=== PATIENT | female | born 1935 | race Hispanic/Latino ===

== ENCOUNTER → 2018-03-31 | Outpatient (CLI) | payer OTHER ==
[~2018-03-31] MED LIST: AEC81 PO; LEVO88TA7 PO; METF500T6 PO; METOPROLOL PO; ROSU40 PO; SUCR1TAB2 PO
== END | disposition home or self-care (01) ==
LOC: SHCH 09:26
PROVIDERS: ATTEND Internal Medicine Cardiovascular Disease
DX: I35.0 Nonrheumatic aortic (valve) stenosis (principal); I10 Essential (primary) hypertension; I35.1 Nonrheumatic aortic (valve) insufficiency; R09.89 Other specified symptoms and signs involving the circulatory and respiratory systems
CPT/HCPCS: 93306; 93880

== ENCOUNTER → 2019-11-06 | Outpatient (CLI) | payer OTHER ==
[~2019-11-06] MED LIST changes: +METF-444 PO; -METF500T6 PO
--- NOTE | 2019-11-06 11:00 | NUR ---
MBSS COMPLETED. -S/S OF ASPIRATION. RECOMMEND REGULAR TEXTURE, THIN LIQUIDS; PILLS WHOLE WITH LIQUIDS. RECOMMENDATIONS: 1. GI CONSULT RECOMMENDED Addendum: 11/06/19 at 1452 by BARBARA EDWARDS, SPT ST Amended: Links added.
== END | disposition home or self-care (01) ==
LOC: RAH 11:02
PROVIDERS: ATTEND Otolaryngology Plastic Surgery within the Head & Neck
DX: R49.0 Dysphonia (principal); R13.10 Dysphagia, unspecified
CPT/HCPCS: 74230; 92611

== ENCOUNTER → 2019-11-20 | Outpatient (CLI) | payer OTHER | END | disposition home or self-care (01) | LOC: SHCH 08:26 | PROVIDERS: ATTEND Internal Medicine Cardiovascular Disease | DX: I35.0 Nonrheumatic aortic (valve) stenosis (principal) | CPT/HCPCS: 93306; 93356 ==

== ENCOUNTER 2020-03-18 07:00 | Day surgery (SDC) | payer OTHER ==
[~2020-03-18] VITALS: Ht 147.3 cm; Wt 53.2 kg
[~2020-03-18 07:00] MED LIST changes: +ALEN70TA10 PO; +LEVO100 PO; -LEVO88TA7 PO; +LOSA50TA64 PO; -METOPROLOL PO; +PANT40TA25 PO; -ROSU40 PO; +SERT50TA12 PO; +SOLI10TA7 PO; -SUCR1TAB2 PO; +VITAD50000 PO
[2020-03-18 07:30] VITALS: BP 87/63
[2020-03-18 07:36] LABS: BASOPHILS % (AUTO) 0.5 % (0.0-5.0); EOSINOPHILS % (AUTO) 2.4 % (0.0-8.0); HEMATOCRIT 40.6 % (36-48); LYMPHOCYTES % (AUTO) 36.5 % (21.0-51.0); MEAN CORPUSCULAR HEMOGLOBIN 28.7 pg (27.0-33.0); MEAN CORPUSCULAR HGB CONC 31.3 g/dL (32.0-36.0); MEAN CORPUSCULAR VOLUME 91.9 fL (79-99); MONOCYTES % (AUTO) 8.4 % (3.0-13.0); NEUTROPHILS % (AUTO) 51.9 % (40.0-77.0); PLATELET COUNT (AUTO) 216 K/uL (130-400); RED BLOOD CELL COUNT(AUTO) 4.42 MIL/uL (4.00-5.50); RED CELL DISTRIBUTION WIDTH 14.3 % (11.0-15.5); WHITE BLOOD COUNT (AUTO) 7.5 K/uL (4.8-10.8)
[2020-03-18] MEDS ORDERED: SODIUM CHLORIDE 0.9% 1000ML 1,000 ML IV ONE (07:44)
[2020-03-18 07:50] LABS: POTASSIUM 4.5 mmol/L (3.5-5.1)
[2020-03-18 08:03] LABS: APPEARANCE,URINE CLEAR (CLEAR); BILIRUBIN,URINE NEGATIVE (NEGATIVE); COLOR,URINE YELLOW (YELLOW); GLUCOSE, URINE (UA) NEGATIVE (NEGATIVE); KETONES,URINE NEGATIVE (NEGATIVE); LEUKOCYTE ESTERASE ,URINE SMALL (NEGATIVE); NITRATE,URINE NEGATIVE (NEGATIVE); OCCULT BLOOD,URINE NEGATIVE (NEGATIVE); PH,URINE 5.5 (5.0-8.0); PROTEIN,URINE NEGATIVE (NEGATIVE); UROBILINOGEN,URINE 0.2 mg/dL (0.2-1.0)
[2020-03-18 08:12] LABS: BACTERIA,URINE Few /HPF (None Seen); MUCUS,URINE Few LPF (None Seen); RBC,URINE 0-1 /HPF (0-1)
[2020-03-18 08:16] LABS: INR 0.97 (0.85-1.15); PARTIAL THROMBOPLASTIN TIME 24.9 SEC (26.3-35.5); PROTHROMBIN TIME 10.5 SEC (9.6-11.6)
[2020-03-18 08:27] VITALS: BP 140/72
--- NOTE | 2020-03-18 08:30 | NUR ---
PROCEDURE CANCELLED DUE TO PT TAKING METFORMIN THIS MORNING. OFFICE WILL CALL PT WITH NEW APPOINTMENT.
== END 2020-03-18 10:00 | disposition home or self-care (01) ==
LOC: DAH 07:00 → EDSTATUS 08:30 → DAH 10:00
PROVIDERS: ATTEND Internal Medicine Cardiovascular Disease
DX: I49.1 Atrial premature depolarization (principal); Z53.8 Procedure and treatment not carried out for other reasons; Z79.82 Long term (current) use of aspirin; Z79.899 Other long term (current) drug therapy
CPT/HCPCS: 36415; 71045; 80048; 81001; 85025; 85610; 85730; 93005; A4215; A4216; A4221; A4222; A4223 ×3; A4606; A4663; J7030

== ENCOUNTER 2020-07-03 06:56 | Day surgery (SDC) | payer OTHER ==
[2020-07-02 13:41] LABS: BASOPHILS % (AUTO) 0.3 % (0.0-5.0); EOSINOPHILS % (AUTO) 1.6 % (0.0-8.0); HEMATOCRIT 42.6 % (36-48); LYMPHOCYTES % (AUTO) 21.2 % (21.0-51.0); MEAN CORPUSCULAR HEMOGLOBIN 29.1 pg (27.0-33.0); MEAN CORPUSCULAR HGB CONC 31.5 g/dL (32.0-36.0); MEAN CORPUSCULAR VOLUME 92.4 fL (79-99); MONOCYTES % (AUTO) 9.2 % (3.0-13.0); NEUTROPHILS % (AUTO) 67.2 % (40.0-77.0); PLATELET COUNT (AUTO) 186 K/uL (130-400); RED BLOOD CELL COUNT(AUTO) 4.61 MIL/uL (4.00-5.50); WHITE BLOOD COUNT (AUTO) 6.3 K/uL (4.8-10.8)
[2020-07-02 13:52] LABS: CREATININE 0.9 mg/dL (0.5-1.5); POTASSIUM 4.7 mmol/L (3.5-5.1)
[2020-07-02 13:56] LABS: APPEARANCE,URINE Cloudy (CLEAR); BILIRUBIN,URINE Negative (NEGATIVE); COLOR,URINE Yellow (YELLOW); GLUCOSE, URINE (UA) Negative (NEGATIVE); KETONES,URINE Negative (NEGATIVE); LEUKOCYTE ESTERASE ,URINE Small (NEGATIVE); NITRATE,URINE Negative (NEGATIVE); OCCULT BLOOD,URINE Negative (NEGATIVE); PH,URINE 5.5 (5.0-8.0); PROTEIN,URINE Negative (NEGATIVE)
[2020-07-02 14:03] LABS: INR 0.99 (0.85-1.15); PARTIAL THROMBOPLASTIN TIME 25.2 SEC (26.3-35.5); PROTHROMBIN TIME 10.7 SEC (9.6-11.6)
[2020-07-02 14:31] LABS: BACTERIA,URINE Rare /HPF (None Seen); MUCUS,URINE Rare LPF (None Seen); RBC,URINE 0-1 /HPF (0-1); SQUAMOUS EPITHELIAL CELL,UR Few /HPF (0-2); WBC,URINE 0-1 /HPF (0-1)
--- NOTE | 2020-07-02 14:49 | NUR ---
Spoke to Cristo OCAMPO about urine with small leukestrase and appearance cloudy, no new orders.
[~2020-07-03] VITALS: Ht 147.3 cm; Wt 51.9 kg
[2020-07-03] VITALS (13 sets, daily range): BP systolic 141–181; BP diastolic 59–96
[~2020-07-03 06:56] MED LIST changes: -ALEN70TA10 PO; -PANT40TA25 PO; +SODIUM CHLORIDE 0.9% 500ML 500 ML IV SCH
[2020-07-03] MEDS ORDERED: SODIUM CHLORIDE 0.9% 1000ML 1,000 ML IV ONE (08:04)
[2020-07-03] MEDS ORDERED: ALEN70TA10 PO (08:44)
[2020-07-03] MEDS ORDERED: BIVALIRUDIN 250 MG/VIAL IV ONE (09:06)
[2020-07-03] MEDS ORDERED: HEPARIN SODIUM 1000UNIT/ML 10ML VIAL ONE (09:06)
[2020-07-03] MEDS ORDERED: IOHEXOL 350 MG/ML 100ML INFUS..BTL IV ONE (09:06)
[2020-07-03] MEDS ORDERED: NITROGLYCERIN 2 MG/VIAL VIAL IV ONE (09:06)
[2020-07-03] MEDS ORDERED: NICARDIPINE HCL 25 MG/10 ML ML IV ONE (09:06)
[2020-07-03] MEDS ORDERED: SODIUM BICARB 50MEQ 50ML VIAL ONE (09:06)
[2020-07-03] MEDS ORDERED: LIDOCAINE HCL 2% 20ML ONE (09:07)
--- NOTE | 2020-07-03 09:30 | NUR ---
PATIENT TAKEN/TRANSFERRED TO HEATING FIXTURE TENDER VIA BED BY ADRIANA BOLAÑOS
[2020-07-03] MEDS ORDERED: MIDAZOLAM HCL 1 MG/ML 2ML VIAL ONE (09:41)
[2020-07-03] MEDS ORDERED: FENTANYL CITRATE PF 50 MCG/1 ML 2ML VIAL ONE (09:41)
[2020-07-03] MEDS ORDERED: IOHEXOL-350 50ML VIAL IV ONE (10:23)
--- NOTE | 2020-07-03 14:22 | NUR ---
RE: HYPERTENSION CALLED DAMARIS LIN AND INFORMED HIM THAT PATIENT'S BLOOD PRESSURE IS 181/78, PULSE 77. PATIENT NOT C/O PAIN AT THIS TIME. PER SREE, RECHECK PATIENT'S BLOOD PRESSURE IN 10 MINS AND CALL HIM WITH RESULTS.
--- NOTE | 2020-07-03 14:42 | NUR ---
RE: HYPERTENSION INFORMED DAMARIS LIN REGARDING BLOOD PRESSURE 174/84, PULSE 72. PER DAMARIS LIN CONTINUE TO MONITOR BLOOD PRESSURE EVERY 20 MINS. Addendum: 07/03/20 at 1506 by JJ DODD RN RN PATIENT ASYMPTOMATIC
--- NOTE | 2020-07-03 15:06 | NUR ---
HANDOFF REPORT GIVEN TO NADIA ONEILL RN USING SBAR AT PATIENT BEDSIDE. PATIENT AAOX3, DRESSING TO RIGHT GROIN IS DRY/INTACT.
--- NOTE | 2020-07-03 15:25 | NUR ---
RECEIVED REPORT FROM JJ DODD, PATIENT BP HIGH AND PER NURSE SHE REPORTED TO SREE OCAMPO, I CALLED DOCTOR DANYELLE AND ADVISED HIM OF ELEVATED BP , NO NEW ORDERS.
== END 2020-07-03 16:00 | disposition home or self-care (01) ==
LOC: DAH 06:56
PROVIDERS: ATTEND Internal Medicine Cardiovascular Disease
DX: I35.0 Nonrheumatic aortic (valve) stenosis (principal); I25.10 Atherosclerotic heart disease of native coronary artery without angina pectoris; I10 Essential (primary) hypertension; E78.5 Hyperlipidemia, unspecified; E03.9 Hypothyroidism, unspecified; K21.9 Gastro-esophageal reflux disease without esophagitis; M19.90 Unspecified osteoarthritis, unspecified site; Z90.710 Acquired absence of both cervix and uterus; Z98.890 Other specified postprocedural states; Z79.82 Long term (current) use of aspirin; Z79.01 Long term (current) use of anticoagulants; Z79.899 Other long term (current) drug therapy
CPT/HCPCS: 36415; 71045; 80048; 81001; 82948; 85025; 85610; 85730; 93005; 93454; 93567; A4215; A4216; A4221; A4222; A4223 ×3; A4606; A4663; C1760; C1894 ×2; J1644; J2250; J3010; J3490 ×4; J7030; Q9965 ×2; Q9967; 99156; 99157; J0583

== ENCOUNTER → 2020-08-28 | Outpatient (CLI) | payer OTHER ==
[~2020-08-28] MED LIST changes: +ATOR20TA65 PO; +ERGO500014 PO; +FURO20TA6 PO; +METO25 PO; +PANT40TA54 PO; -SODIUM CHLORIDE 0.9% 500ML 500 ML IV SCH; -VITAD50000 PO
[2020-08-28 08:27] LABS: INR 1.03 (0.85-1.15); PARTIAL THROMBOPLASTIN TIME 26.6 SEC (26.3-35.5); PROTHROMBIN TIME 11.1 SEC (9.6-11.6)
--- NOTE | 2020-08-28 08:45 | NUR ---
US GUIDED RIGHT THORACENTESIS PROCEDURE PERFORMED BY DR. WILLOUGHBY. PUNCTURE SITE RIGHT POSTERIOR BACK AND PATIENT TOLERATED PROCEDURE WELL. TOTAL REMOVED 600 MILLILITERS OF CLOUDY BLOODY FLUID. END OF PROCEDURE AT 0855. CATHETER REMOVED AND DRESSING APPLIED. NO BLEEDING NOTED. POST CHEST X-RAY TAKEN AND READ BY DR. WILLOUGHBY NO PNEUMOTHORAX SEEN. DISCHARGE INSTRUCTIONS GIVEN TO PATIENT AND VERBALIZED UNDERSTANDING. DISCHARGED VIA W/C STABLE, AAO X 3 WITH NO C/O PAIN.
== END | disposition home or self-care (01) ==
LOC: RAH 07:32
PROVIDERS: ATTEND Thoracic Surgery (Cardiothoracic Vascular Surgery)
DX: I70.0 Atherosclerosis of aorta (principal); R06.02 Shortness of breath; Z98.890 Other specified postprocedural states
CPT/HCPCS: 32555; 36415; 71045; 85610; 85730; A4215

== ENCOUNTER 2020-09-02 13:22 | Emergency (ER) | payer OTHER ==
[2020-09-02 14:15] LABS: BASOPHILS % (AUTO) 0.7 % (0.0-5.0); EOSINOPHILS % (AUTO) 7.8 % (0.0-8.0); HEMATOCRIT 31.4 % (36-48); LYMPHOCYTES % (AUTO) 30.9 % (21.0-51.0); MEAN CORPUSCULAR HEMOGLOBIN 28.1 pg (27.0-33.0); MEAN CORPUSCULAR HGB CONC 31.8 g/dL (32.0-36.0); MEAN CORPUSCULAR VOLUME 88.2 fL (79-99); MONOCYTES % (AUTO) 7.8 % (3.0-13.0); NEUTROPHILS % (AUTO) 52.4 % (40.0-77.0); PLATELET COUNT (AUTO) 216 K/uL (130-400); RED BLOOD CELL COUNT(AUTO) 3.56 MIL/uL (4.00-5.50); RED CELL DISTRIBUTION WIDTH 14.4 % (11.0-15.5); WHITE BLOOD COUNT (AUTO) 7.6 K/uL (4.8-10.8)
[2020-09-02 14:28] LABS: INR 1.06 (0.85-1.15); PARTIAL THROMBOPLASTIN TIME 25.2 SEC (26.3-35.5); PROTHROMBIN TIME 11.4 SEC (9.6-11.6)
[2020-09-02 14:38] LABS: ALBUMIN 2.7 g/dL (3.5-5.0); BILIRUBIN,TOTAL 0.2 mg/dL (0.2-1.0); TOTAL PROTEIN, SERUM 7.3 g/dL (6.0-8.3); TROPONIN I 0.05 ng/mL (0.00-0.06)
[2020-09-02 14:40] LABS: POTASSIUM 2.8 mmol/L (3.5-5.1)
[2020-09-02] MEDS ORDERED: POTASSIUM BICARB/CIT AC 25 MEQ TABLET.EFF ONE (14:46)
--- NOTE | 2020-09-02 15:32 | NUR ---
RE: THORACENTESIS PATIENT SCHEDULED FOR THORACENTESIS FROM ER. IMAGES TAKEN AND REVIEWED BY DR Brianna VAUGHAN. NO FLUID SEEN AND PROCEDURE CANCELLED. PROCEDURE OUTCOME REPORTED TO ADRIANA WILLIAM AND PATIENT TRANSPORTED TO ED 5 VIA STRETCHER AT 1530.
[2020-09-02 16:17] LABS: CREATININE 0.9 mg/dL (0.5-1.5); POTASSIUM 4.2 mmol/L (3.5-5.1)
== END 2020-09-02 16:44 | disposition home or self-care (01) ==
LOC: EDH 13:22
DX: E87.6 Hypokalemia (principal); R06.02 Shortness of breath; I10 Essential (primary) hypertension; E07.9 Disorder of thyroid, unspecified; E11.9 Type 2 diabetes mellitus without complications; Z95.1 Presence of aortocoronary bypass graft; Z98.890 Other specified postprocedural states
CPT/HCPCS: 36415; 71045; 76604; 80048; 80053; 82550; 83605; 83874; 84145; 84484; 85025; 85610; 85730; 86900; 86901; 87040; 93005

== ENCOUNTER → 2022-04-05 | Outpatient (CLI) | payer OTHER ==
[~2022-04-05] MED LIST changes: -ERGO500014 PO; +ERGO500093 PO; +SERT-439 PO; -SERT50TA12 PO
[2022-04-05 10:47] LABS: CREATININE 0.7 mg/dL (0.5-1.5); POTASSIUM 4.4 mmol/L (3.5-5.1)
== END | disposition home or self-care (01) ==
LOC: RAH 09:44
PROVIDERS: ATTEND Internal Medicine Cardiovascular Disease
DX: J98.6 Disorders of diaphragm (principal); R06.00 Dyspnea, unspecified
CPT/HCPCS: 36415; 71045; 80048; 83880

== ENCOUNTER 2023-09-07 18:31 | Emergency (ER) | payer OTHER ==
[~2023-09-07] VITALS: Ht 152.4 cm; Wt 45.4 kg
[2023-09-07 20:08] LABS: BASOPHILS # (AUTO) 0.03 K/uL (0.00-0.20); BASOPHILS % (AUTO) 0.3 % (0.0-5.0); EOSINOPHILS # (AUTO) 0.14 K/uL (0.00-0.70); EOSINOPHILS % (AUTO) 1.5 % (0.0-8.0); HEMATOCRIT 37.2 % (36-48); IMMATURE GRANULOCYTE ABSOLUTE 0.03 K/uL (0-1); LYMPHOCYTES # (AUTO) 2.1 K/uL (1.0-4.8); LYMPHOCYTES % (AUTO) 22.1 % (21.0-51.0); MEAN CORPUSCULAR HGB CONC 32.3 g/dL (32.0-36.0); MEAN CORPUSCULAR VOLUME 89.9 fL (79-99); MONOCYTES # (AUTO) 0.7 K/uL (0.1-1.0); MONOCYTES % (AUTO) 6.9 % (3.0-13.0); NEUTROPHILS # (AUTO) 6.6 K/uL (1.8-7.7); NEUTROPHILS % (AUTO) 68.9 % (40.0-77.0); PLATELET COUNT (AUTO) 196 K/uL (130-400); RED BLOOD CELL COUNT(AUTO) 4.14 MIL/uL (4.00-5.50); RED CELL DISTRIBUTION WIDTH 14.6 % (11.0-15.5); WHITE BLOOD COUNT (AUTO) 9.5 K/uL (4.8-10.8)
[2023-09-07 20:21] LABS: CREATININE 0.8 mg/dL (0.5-1.5); POTASSIUM 4.2 mmol/L (3.5-5.1)
[2023-09-07 20:35] LABS: ALBUMIN 3.7 g/dL (3.5-5.0); BILIRUBIN,TOTAL 0.3 mg/dL (0.2-1.0); TOTAL PROTEIN, SERUM 7.7 g/dL (6.0-8.3)
[2023-09-07 20:42] LABS: B-TYPE NATRIURETIC PEPTIDE 241 pg/mL (0-100)
[2023-09-07 21:50] LABS: ADD UA MICROSCOPIC NO; APPEARANCE,URINE CLEAR (CLEAR); BILIRUBIN,URINE NEGATIVE (NEGATIVE); COLOR,URINE COLORLESS (YELLOW); GLUCOSE, URINE (UA) NEGATIVE (NEGATIVE); KETONES,URINE NEGATIVE (NEGATIVE); LEUKOCYTE ESTERASE ,URINE NEGATIVE Leu/uL (NEGATIVE); NITRATE,URINE NEGATIVE (NEGATIVE); OCCULT BLOOD,URINE NEGATIVE (NEGATIVE); PH,URINE 5.5 (5.0-8.0); PROTEIN,URINE NEGATIVE (NEGATIVE); UROBILINOGEN,URINE 0.2 mg/dL (0.2-1.0)
[2023-09-07] MEDS ORDERED: IBUP-2076 PO (22:54)
[2023-09-07 23:04] VITALS: BP 158/86; PULSE 81; RESP 17; O2SAT 96
== END 2023-09-07 23:06 | disposition home or self-care (01) ==
LOC: EDH 18:31
DX: S09.90XA Unspecified injury of head, initial encounter (principal); E78.00 Pure hypercholesterolemia, unspecified; E03.9 Hypothyroidism, unspecified; K21.9 Gastro-esophageal reflux disease without esophagitis; I25.10 Atherosclerotic heart disease of native coronary artery without angina pectoris; F41.9 Anxiety disorder, unspecified; I10 Essential (primary) hypertension; W18.39XA Other fall on same level, initial encounter; Y93.89 Activity, other specified; Y92.89 Other specified places as the place of occurrence of the external cause; Y99.8 Other external cause status
CPT/HCPCS: 36415; 70450; 71045; 72125; 80053; 81003; 82550; 83880; 84484; 85025

== ENCOUNTER 2023-10-20 10:00 | Emergency (ER) | payer OTHER ==
[~2023-10-20] VITALS: Ht 152.4 cm; Wt 51.3 kg
[~2023-10-20 10:00] MED LIST changes: +IBUP-2076 PO
[2023-10-20] MEDS ORDERED: ACETAMINOPHEN 500 MG TABLET PO ONE (10:30)
[2023-10-20] MEDS ORDERED: HYDRALAZINE 20MG/ML VIAL IV ONE (11:30)
[2023-10-20 11:44] LABS: HEMATOCRIT 36.7 % (36-48); MEAN CORPUSCULAR HEMOGLOBIN 28.4 pg (27.0-33.0); MEAN CORPUSCULAR HGB CONC 31.6 g/dL (32.0-36.0); MEAN CORPUSCULAR VOLUME 89.7 fL (79-99); RED BLOOD CELL COUNT(AUTO) 4.09 MIL/uL (4.00-5.50); RED CELL DISTRIBUTION WIDTH 14.1 % (11.0-15.5); WHITE BLOOD COUNT (AUTO) 7.9 K/uL (4.8-10.8)
[2023-10-20 12:05] LABS: CREATININE 0.7 mg/dL (0.5-1.5); POTASSIUM 3.8 mmol/L (3.5-5.1)
[2023-10-20 12:19] VITALS: BP 138/65; PULSE 78; RESP 18; O2SAT 100
[2023-10-20 12:19] LABS: MAGNESIUM 1.5 mg/dL (1.80-2.40); THYROID STIMULATING HORMONE 6.6 uIU/mL (0.36-3.74)
== END 2023-10-20 13:52 | disposition home or self-care (01) ==
LOC: EDH 10:00
DX: S70.01XA Contusion of right hip, initial encounter (principal); E11.9 Type 2 diabetes mellitus without complications; I10 Essential (primary) hypertension; Z79.82 Long term (current) use of aspirin; Z79.84 Long term (current) use of oral hypoglycemic drugs; Z79.890 Hormone replacement therapy; Z79.899 Other long term (current) drug therapy; Z86.73 Personal history of transient ischemic attack (TIA), and cerebral infarction without residual deficits; W18.39XA Other fall on same level, initial encounter; Y93.89 Activity, other specified; Y92.89 Other specified places as the place of occurrence of the external cause; Y99.8 Other external cause status
CPT/HCPCS: 99285; 70450; 71045; 84443; 82550; 83735; 80048; 85027; 36415; 72170; 72125; J0360